=== PATIENT | female | born 1965 | race Caucasian/White ===

== ENCOUNTER 2017-07-27 20:51 | Emergency (ER) | payer BC, MEDICAID ==
[~2017-07-27] VITALS: Ht 170.2 cm; Wt 99.8 kg
--- NOTE | 2017-07-27 20:51 | NUR ---
Placed in room 1. Placed on mri supervisor, blood pressure machine and pulse oximeter. To gown for exam. Side rails up. Report given to Maxi WETZEL.
--- NOTE | 2017-07-27 20:52 | NUR ---
Patient AAOx4, ambulatory. Per pt, manager technical sales states patient had main complaint of a headache that occurred approximately 1 hour prior to ER visit with pain scale 10/10. Patient states having nausea and vomiting at this time, 1 episode of vomiting noted while in ER. manager technical sales states patient had systolic BP of 184 en route to ER, states patient is non-compliant with blood pressure medication. Patient denies any other complaints.
[2017-07-27 20:54] VITALS: BP_SYST 194
--- NOTE | 2017-07-27 20:55 | NUR ---
ER MD Snell at bedside evaluating the patient
--- NOTE | 2017-07-27 21:02 | NUR ---
ATIVAN 2 MG ADMIN IM PER MD VERBAL ORDER.
--- NOTE | 2017-07-27 21:03 | NUR ---
Patient refusing IV at this time. Refusing medication for nausea and vomiting. Md notified.
[2017-07-27] MEDS ORDERED: PROCHLORPERAZINE EDISYLATE 10 MG/2 ML VIAL ONE (21:06)
[2017-07-27] MEDS ORDERED: METOPROLOL TARTRATE 5 MG/5 ML VIAL ONE (21:06)
[2017-07-27] MEDS ORDERED: LORazepam 2 MG/ML VIAL (FOR ER USE) ONE (21:09)
--- NOTE | 2017-07-27 21:20 | NUR ---
# 22 gauge angiocath placed to right forearm. Use of asceptic technique. Blood return noted. Flushed with 10 cc of normal saline. No evidence of infiltration noted. Patient tolerated well.
[2017-07-27] MEDS ORDERED: METOPROLOL TARTRATE 5 MG/5 ML VIAL IVP ONE (21:30)
[2017-07-27] MEDS ORDERED: PROCHLORPERAZINE EDISYLATE 10 MG/2 ML VIAL IM ONE (21:30)
[2017-07-27] MEDS ORDERED: LORazepam 2 MG/ML VIAL (FOR ER USE) IM ONE (21:30)
[2017-07-27 22:27] LABS: BASOPHILS # (AUTO) 0.1 K/uL (0.0-0.2); BASOPHILS % (AUTO) 0.7 % (0.0-2.0); EOSINOPHILS # (AUTO) 0.1 K/uL (0.0-0.4); EOSINOPHILS % (AUTO) 1.4 % (0.0-4.0); HEMATOCRIT 43.7 % (36-48); HEMOGLOBIN 14.4 g/dL (12.0-16.0); LYMPHOCYTES # (AUTO) 1.8 K/uL (1.0-5.5); LYMPHOCYTES % (AUTO) 18.2 % (20.5-51.5); MEAN CORPUSCULAR HEMOGLOBIN 31 pg (27-31); MEAN CORPUSCULAR HGB CONC 33 % (32-36); MEAN CORPUSCULAR VOLUME 95 fL (79.0-98.0); MONOCYTES # (AUTO) 0.5 K/uL (0.0-1.0); MONOCYTES % (AUTO) 4.8 % (1.7-9.3); NEUTROPHILS # (AUTO) 7.7 K/uL (1.8-7.7); NEUTROPHILS % (AUTO) 74.9 % (40.0-70.0); PLATELET COUNT (AUTO) 251 K/uL (130-430); RED BLOOD CELL COUNT(AUTO) 4.61 MIL/uL (4.2-6.2); RED CELL DISTRIBUTION WIDTH 12.1 % (9.0-15.0); WHITE BLOOD COUNT (AUTO) 10.2 K/uL (4.8-10.8)
[2017-07-27 22:32] LABS: CREATININE 0.95 mg/dL (0.55-1.30); POTASSIUM 3.5 mmol/L (3.5-5.1)
[2017-07-27 22:33] LABS: PROTHROMBIN TIME 10.9 SECS (9.5-12.5)
[2017-07-27 22:37] LABS: ALBUMIN 3.6 g/dL (3.4-4.8); TOTAL BILIRUBIN 1.4 mg/dL (0.0-1.0)
--- NOTE | 2017-07-27 22:51 | NUR ---
Patient stable, sleeping. No signs of distress noted. Vital signs within therapeutic range. Will continue to monitor.
[2017-07-27 23:25] VITALS: BP_SYST 122
--- NOTE | 2017-07-27 23:25 | NUR ---
Patient given written and verbal discharge instructions and verbalizes understanding. ER MD discussed with patient the results and treatment provided. Patient in stable condition. ID arm band removed. IV catheter removed intact and dressing applied, no active bleeding. Patient educated on pain management and to follow up with PMD. Pain Scale 0/10. Opportunity for questions provided and answered.
== END 2017-07-27 23:25 | disposition home or self-care (01) ==
LOC: SED 20:51
DX: F41.0 Panic disorder [episodic paroxysmal anxiety] (principal); I10 Essential (primary) hypertension; R51 Headache; R05 Cough; R79.1 Abnormal coagulation profile; J45.909 Unspecified asthma, uncomplicated; Z88.6 Allergy status to analgesic agent; Z88.2 Allergy status to sulfonamides
CPT/HCPCS: 36415; 70450; 71010; 80053; 80061; 84484; 84703; 85025; 85610; 85730; 93005; 96372; 96374; 96375; 99285; J0780; J2060; J3490; J7030

== ENCOUNTER 2020-06-02 14:15 | Emergency (ER) | payer MEDICAID, OTHER ==
[~2020-06-02] VITALS: Ht 167.6 cm; Wt 104.3 kg
[2020-06-02 14:43] VITALS: BP_SYST 154
--- NOTE | 2020-06-02 15:19 | NUR ---
Patient to ER bed H1 to gown for evaluation. Side rails up.
--- NOTE | 2020-06-02 15:20 | NUR ---
Pt brought by self, A&Ox4, pt presents to ER with L foot pain after she stepped on a foreign object few days ago, skin pink and warm, cap refill <3.
[2020-06-02] MEDS ORDERED: LIDOCAINE 1% 10 MG/ML, 20 ML MDV INJ ONE (15:30)
--- NOTE | 2020-06-02 15:30 | NUR ---
Dr Chiu assessing patient in the triage room
[2020-06-02 16:04] VITALS: BP_SYST 152
--- NOTE | 2020-06-02 16:04 | NUR ---
Patient given written and verbal discharge instructions and verbalizes understanding. ER MD discussed with patient the results and treatment provided. Patient in stable condition. ID arm band removed. Rx of Tramadol given. Patient educated on pain management and to follow up with PMD. Pain Scale 2/10 Opportunity for questions provided and answered. Medication side effect fact sheet provided.
== END 2020-06-02 16:04 | disposition home or self-care (01) ==
LOC: SED 14:15
DX: S90.852A Superficial foreign body, left foot, initial encounter (principal); J45.909 Unspecified asthma, uncomplicated; Z85.3 Personal history of malignant neoplasm of breast; Z88.2 Allergy status to sulfonamides; Z88.6 Allergy status to analgesic agent; W45.8XXA Other foreign body or object entering through skin, initial encounter; Y93.89 Activity, other specified; Y92.89 Other specified places as the place of occurrence of the external cause; Y99.8 Other external cause status
CPT/HCPCS: 99284; J2001